=== PATIENT | male | born 1930 | race Caucasian/White ===

== ENCOUNTER 2016-12-17 10:40 | Emergency (ER) | payer OTHER, MEDICARE ==
[~2016-12-17 10:40] MED LIST: ASPIRIN EC81 MG PO; CORDARONE200 MG PO; DULCOLAX5 MG PO; IMDUR ER TAB 3030 MG PO; LEVAQUIN TAB 2250 MG PO; LOPRESSOR 25 MG25 MG PO; MEDROL DOSEPAK 24 MG PO; MIRALAX17 GM PO; PERCOCET 7.5-31 EACH PO; PROTONIX40 MG PO; SPIRIVA RESPIMAT4 GM INH; SYMBICORT 80-41 INHA INH; THERAGRAN M TAB1 EA PO; VENTOLIN HFA 66.7 GM INH
[2016-12-17 13:16] LABS: RED BLOOD COUNT 4.02 M/UL (4.20-5.50); WHITE BLOOD COUNT 6.5 K/UL (4.5-11.0)
== END 2016-12-17 19:32 | disposition home or self-care (01) ==
LOC: ER1 10:40
PROVIDERS: Emergency Medicine
DX: J44.0 Chronic obstructive pulmonary disease with (acute) lower respiratory infection (principal); J20.9 Acute bronchitis, unspecified; N18.4 Chronic kidney disease, stage 4 (severe); D64.9 Anemia, unspecified; I25.10 Atherosclerotic heart disease of native coronary artery without angina pectoris; Z90.49 Acquired absence of other specified parts of digestive tract; Z85.46 Personal history of malignant neoplasm of prostate; Z79.899 Other long term (current) drug therapy
CPT/HCPCS: 36415; 71010; 80053; 82550; 82553; 83605; 83690; 83874; 83880; 84484; 85025; 87040; 93005; 94664; 96374; 99285; J2930